=== PATIENT | male | born 1990 | race Two or more races ===

== ENCOUNTER 2017-08-13 14:25 | Emergency (ER) | payer OTHER ==
[~2017-08-13] VITALS: Ht 162.6 cm; Wt 65.8 kg
[2017-08-13 14:57] VITALS: BP 123/80
[2017-08-13] MEDS ORDERED: TETRACAINE HCL 0.5% OPTH(EYE) SOLN 4ML ONE (15:00)
[2017-08-13] MEDS ORDERED: FLUORESCEIN SOD 1 MG TEST STRIP LEFTEYE ONE (15:00)
[2017-08-13] MEDS ORDERED: TETRACAINE 1% INJ 2 ML VIAL IJ ONE (15:00)
== END 2017-08-13 15:24 | disposition home or self-care (01) ==
LOC: ER 14:30
DX: S05.12XA Contusion of eyeball and orbital tissues, left eye, initial encounter (principal); H10.32 Unspecified acute conjunctivitis, left eye; E10.9 Type 1 diabetes mellitus without complications; F17.210 Nicotine dependence, cigarettes, uncomplicated; Z79.4 Long term (current) use of insulin; W22.8XXA Striking against or struck by other objects, initial encounter; Y93.89 Activity, other specified; Y92.89 Other specified places as the place of occurrence of the external cause; Y99.8 Other external cause status